=== PATIENT | male | born 1960 | race Caucasian/White ===

== ENCOUNTER 2018-11-19 00:37 | Emergency (ER) | payer MEDICAID ==
[~2018-11-19] VITALS: Ht 180.3 cm; Wt 77.1 kg
--- NOTE | 2018-11-19 00:45 | NUR ---
PT A/OX4, PRESENTS TO THE ER C/O COUGH & FLU-LIKE SYMPTOMS X 3 WEEKS, WORSENING IN THE LAST 3 DAYS. VSS AND AFEBRILE. PT DENIES PAIN, C/P, SOB, N/V/D, DIZZINESS, HEADACHE. ER MD AT BEDSIDE FOR MSE.
--- NOTE | 2018-11-19 00:50 | NUR ---
PT C/O ANTERIOR CHEST PAIN 04/24 TO ER MD. ER MD EXPLAINED THAT CHEST PAIN IS COMMON FOR PROLONGED COUGHING, BUT PT REQUESTS TO RECEIVE ALL CHEST PAIN RELATED MEDICAL INTERVENTIONS.
[2018-11-19] MEDS ORDERED: ASPIRIN 81 MG TAB.CHEW PO ONE (01:00)
[2018-11-19] MEDS ORDERED: OXYCODONE/APAP 5-325 MG TABLET PO ONE (01:00)
[2018-11-19] MEDS ORDERED: ONDANSETRON ODT 4 MG TAB.RAPDIS SL ONE (01:00)
[2018-11-19] MEDS ORDERED: GUAIFENESIN/CODEINE 5 ML LIQUID UDC PO ONE (01:00)
[2018-11-19] MEDS ORDERED: NITROGLYCERIN OINT 1 GM PACKET TP ONE ×2 (01:00→01:02)
[2018-11-19] MEDS ORDERED: ASPIRIN 81 MG TAB.CHEW ONE (01:01)
[2018-11-19] MEDS ORDERED: OXYCODONE/APAP 5-325 MG TABLET ONE (01:02)
[2018-11-19] MEDS ORDERED: GUAIFENESIN/CODEINE 5 ML LIQUID UDC ONE (01:03)
[2018-11-19] MEDS ORDERED: ONDANSETRON ODT 4 MG TAB.RAPDIS ONE (01:03)
--- NOTE | 2018-11-19 01:07 | NUR ---
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
[2018-11-19 01:27] LABS: CREATININE 0.9 mg/dL (0.6-1.3); POTASSIUM 4.1 mmol/L (3.5-5.1)
[2018-11-19 01:28] LABS: BASOPHILS % (AUTO) 0.3 % (0.0-2.0); EOSINOPHILS # (AUTO) 0.2 K/uL (0.0-0.7); EOSINOPHILS % (AUTO) 3.3 % (0.0-7.0); HEMATOCRIT 41.4 % (36.7-47.1); HEMOGLOBIN 14.2 g/dL (12.5-16.3); LYMPHOCYTES # (AUTO) 1.7 K/uL (20.0-40.0); LYMPHOCYTES % (AUTO) 24.6 % (20.5-51.5); MEAN CORPUSCULAR HEMOGLOBIN 29.7 uug (23.8-33.4); MEAN CORPUSCULAR HGB CONC 34 g/dL (32.5-36.3); MEAN CORPUSCULAR VOLUME 86.6 fL (73.0-96.2); MONOCYTES # (AUTO) 0.7 K/uL (2.0-10.0); MONOCYTES % (AUTO) 9.4 % (0.0-11.0); NEUTROPHILS # (AUTO) 4.3 K/uL (1.8-8.9); NEUTROPHILS % (AUTO) 62.4 % (38.5-71.5); PLATELET COUNT (AUTO) 247 K/uL (152-348); RED BLOOD CELL COUNT(AUTO) 4.78 MIL/uL (4.06-5.63); WHITE BLOOD COUNT (AUTO) 6.9 K/uL (3.6-10.2)
[2018-11-19 01:40] LABS: BILIRUBIN,DIRECT 0.1 mg/dL (0.0-0.2); BILIRUBIN,TOTAL 0.3 mg/dL (0.2-1.0); TOTAL PROTEIN, SERUM 7.3 g/dL (6.4-8.2)
--- NOTE | 2018-11-19 02:03 | NUR ---
FLACA AGUILAR AT BEDSIDE FOR PT UPDATE.
--- NOTE | 2018-11-19 02:43 | NUR ---
PT RESTING COMFORTABLY IN BED. FAMILY AT BEDSIDE. NO COMPLAINTS AT THIS TIME.
--- NOTE | 2018-11-19 03:50 | NUR ---
Patient awaiting serial Troponin draw @ 0400. D/c if negative results.
--- NOTE | 2018-11-19 04:18 | NUR ---
Patient in bed, no acute distress noted. No c/o CP at this time. Cough improvement. All patient needs attended and met. 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 VSS. Son at bedside. Pending troponin results then d/c if all clear.
[2018-11-19] MEDS ORDERED: predniSONE 20 MG TABLET PO ONE (04:45)
[2018-11-19] MEDS ORDERED: predniSONE 10 MG TABLET ONE (04:47)
[2018-11-19] MEDS ORDERED: predniSONE 50 MG TABLET ONE (04:47)
--- NOTE | 2018-11-19 04:51 | NUR ---
Patient discharged to home in stable conditon. Written and verbal after care instructions given. Patient verbalizes understanding of instructions. PT D/C W/ PRESCRIPTIONS. ALL BELONGINGS W/ PT. PT SELF-AMBULATED W/O DIFFICULTY. PT WILL BE DRIVEN HOME BY SON IN PRIVATE VEHICLE. 18G R AC REMOVED PRIOR TO D/C - INNER CANNULA INTACT.
[2018-11-19 04:52] VITALS: BP 102/76
== END 2018-11-19 04:53 | disposition home or self-care (01) ==
LOC: ER 00:39
DX: J40 Bronchitis, not specified as acute or chronic (principal); R07.89 Other chest pain; Z90.49 Acquired absence of other specified parts of digestive tract
CPT/HCPCS: 36415; 71045; 80048; 80076; 83880; 84484 ×2; 85025; 85379; 93005; 99284; J7512 ×2; 70030-TC; A4663; Q0162

== ENCOUNTER 2024-05-16 19:45 | Emergency (ER) | payer MEDICAID, MEDICARE, OTHER ==
[~2024-05-16] VITALS: Ht 177.8 cm; Wt 83.9 kg
[2024-05-16] MEDS ORDERED: METH-806 PO (20:16)
[2024-05-16] MEDS ORDERED: ATOR40TA PO (20:27)
[2024-05-16] MEDS ORDERED: IBUPROFEN 400 MG TABLET ONE (20:36)
[2024-05-16] MEDS: IBUPROFEN 400 MG TABLET PO ONE (20:38)
[2024-05-16 20:53] LABS: BASOPHILS # (AUTO) 0.2 K/UL (0.0-0.2); BASOPHILS % (AUTO) 3.1 % (0.0-2.0); EOSINOPHILS % (AUTO) 0.6 % (0.0-7.0); HEMATOCRIT 43.6 % (36.7-47.1); HEMOGLOBIN 14.3 g/dL (12.5-16.3); LYMPHOCYTES # (AUTO) 0.4 K/uL (0.8-4.8); LYMPHOCYTES % (AUTO) 6.8 % (20.5-51.5); MEAN CORPUSCULAR HEMOGLOBIN 28.8 uug (23.8-33.4); MEAN CORPUSCULAR HGB CONC 33 g/dL (32.5-36.3); MEAN CORPUSCULAR VOLUME 87.5 fL (73.0-96.2); MONOCYTES # (AUTO) 0.6 K/uL (0.1-1.30); MONOCYTES % (AUTO) 9.8 % (0.0-11.0); NEUTROPHILS # (AUTO) 5.2 K/uL (1.8-8.9); NEUTROPHILS % (AUTO) 79.7 % (38.5-71.5); PLATELET COUNT (AUTO) 174 K/uL (152-348); RED BLOOD CELL COUNT(AUTO) 4.98 MIL/uL (4.06-5.63); RED CELL DISTRIBUTION WIDTH 12.8 % (12.1-16.2); WHITE BLOOD COUNT (AUTO) 6.6 K/uL (3.6-10.2)
[2024-05-16 20:54] LABS: DIFFERENTIAL COMMENT 1
[2024-05-16 21:03] LABS: *BILIRUBIN,URIN NEGATIVE (NEGATIVE); *BLOOD, URINE 2+ (NEGATIVE); *CLARITY,URINE CLOUDY (CLEAR); *COLOR,URINE YELLOW (YELLOW); *KETONES,URINE NEGATIVE (NEGATIVE); *PROTEIN,URINE NEGATIVE (NEGATIVE); *UROBILINOGEN,URINE 0.2 E.U./dl (NORMAL); LEUKOCYTE ESTERASE ,URINE NEGATIVE (NEGATIVE); NITRITE, URINE NEGATIVE (NEGATIVE); PH,URINE 6.5 (5.0-8.0); UGLUCOSE NEGATIVE (NEGATIVE)
[2024-05-16 21:04] LABS: WBC,URINE 0-3 /HPF (0-3)
[2024-05-16 21:08] LABS: CALCIUM 8.6 mg/dL (8.5-10.1); CREATININE 1.1 mg/dL (0.6-1.3)
[2024-05-16 21:21] LABS: ALBUMIN 3.5 g/dL (3.4-5.0); BILIRUBIN,TOTAL 0.5 mg/dL (0.2-1.0); TOTAL PROTEIN, SERUM 7.4 g/dL (6.4-8.2)
[2024-05-16] MEDS ORDERED: AZITHROMYCIN 250 MG TABLET ONE (22:29)
[2024-05-16] MEDS ORDERED: AZIT250T PO (22:30)
[2024-05-16] MEDS: AZITHROMYCIN 250 MG TABLET PO ONE (22:31)
[2024-05-16] MEDS ORDERED: BENZ-13 PO (22:41)
[2024-05-16 22:58] VITALS: BP 108/74; TEMP 98.9; O2SAT 99
== END 2024-05-16 22:58 | disposition home or self-care (01) ==
LOC: ER 19:46
DX: J02.9 Acute pharyngitis, unspecified (principal); J40 Bronchitis, not specified as acute or chronic; E78.5 Hyperlipidemia, unspecified; Z90.49 Acquired absence of other specified parts of digestive tract; Z79.899 Other long term (current) drug therapy; Z20.822 Contact with and (suspected) exposure to COVID-19
CPT/HCPCS: 36415; 71045; 83605; 84484; 85025; 87040; A4606; A4663; Q0144